=== PATIENT | male | born 1960 | race Caucasian/White ===

== ENCOUNTER 2021-01-25 07:55 | Day surgery (SDC) | payer OTHER ==
[2021-01-24 12:44] VITALS: BMI 28.8
[2021-01-25] MEDS ORDERED: PROPOFOL 20 ML ONE ×2 (08:34)
[2021-01-25] MEDS ORDERED: LIDOCAINE HCL/PF 2% SDV 5ML VIAL ONE (08:34)
[2021-01-25 09:37] VITALS: TEMP 98
[2021-01-25 10:14] VITALS: BP 107/71; PULSE 60
== END 2021-01-25 10:10 | disposition home or self-care (01) ==
LOC: FASU-ENDO 07:55
PROVIDERS: ATTEND Internal Medicine Gastroenterology
PROC: 0DJD8ZZ Inspection of Lower Intestinal Tract, Via Natural or Artificial Opening Endoscopic (ICD-10-PCS; principal; 2021-01-25 09:01)
DX: Z12.11 Encounter for screening for malignant neoplasm of colon (principal)